=== PATIENT | female | born 1990 ===

== ENCOUNTER 2022-07-04 06:00 | Outpatient (RCR) | payer OTHER, SELFPAY | END 2022-08-01 23:59 | disposition home or self-care (01) | LOC: MOT 06:00 | PROVIDERS: Visit Provider Orthopaedic Surgery | DX: S62.616D Displaced fracture of proximal phalanx of right little finger, subsequent encounter for fracture with routine healing (principal) | CPT/HCPCS: 97110; 97140; 97165 ==

== ENCOUNTER → 2022-08-16 10:05 | Outpatient (BNVA) | payer OTHER, SELFPAY | PROVIDERS: Referring Provider Nurse Practitioner Family; Visit Provider Student in an Organized Health Care Education/Training Program | DX: S60.221A Contusion of right hand, initial encounter (principal); W20.8XXA Other cause of strike by thrown, projected or falling object, initial encounter; Z87.81 Personal history of (healed) traumatic fracture | CPT/HCPCS: 73130 ==